=== PATIENT | female | born 1965 | race Caucasian/White ===

== ENCOUNTER 2018-09-25 09:02 | Emergency (ER) | payer MEDICAID, SELFPAY ==
[~2018-09-25] VITALS: Ht 157.5 cm; Wt 94.6 kg
--- NOTE | 2018-09-25 09:20 | NUR ---
PT PRESENTED TO ED WITH BILATERAL LOWER BACK PAIN FOR A FEW DAYS. PT STATES THAT SHE HAS A " FUNNY ODOR " TO HER URINE. PT A&OX4. ASSESSMENT COMPLETED. URINE SAMPLE OBTAINED AND SENT TO LAB. PT PLACED ON BP AND CONT. PULSE OXIMETER. ASSESSMENT COMPLETED. CALL LIGHT IN REACH. PT STATES PAIN OF 10/10.
[2018-09-25 10:08] LABS: CULTURE INDICATED? YES; MICROSCOPIC INDICATED
--- NOTE | 2018-09-25 10:20 | NUR ---
pt waiting for results.
[2018-09-25] MEDS ORDERED: ONDANSETRON ODT 4 MG PO ONE (10:30)
--- NOTE | 2018-09-25 12:42 | NUR ---
pt discharged with discharge instructions and follow up instructions. pt verbalized understanding. pt up ambulatory and stable on feet.
[2018-09-25 12:43] VITALS: BP 140/99
== END 2018-09-25 12:44 | disposition home or self-care (01) ==
LOC: ED 12:36
DX: N30.00 Acute cystitis without hematuria (principal); I10 Essential (primary) hypertension
CPT/HCPCS: 76770; 81001; 87077; 87086; 87186; 99284